=== PATIENT | female | born 1985 | race Caucasian/White ===

== ENCOUNTER 2017-06-28 18:21 | Emergency (ER) | payer OTHER ==
[~2017-06-28] VITALS: Ht 160 cm; Wt 52.8 kg
[~2017-06-28 18:21] MED LIST: ACET-1256 PO; ASPEC325 PO; MORP60TA6 PO; MTR600X PO; POLY335019 PO
[2017-06-28 18:43] VITALS: Ht 160 cm; Wt 52.8 kg
[2017-06-28] MEDS ORDERED: IBUPROFEN 800 MG TAB PO STA (19:04)
[2017-06-28] MEDS ORDERED: SODIUM CHLORIDE 0.9% 1000ML 1,000 ML IV STA ×2 (19:04→21:03)
[2017-06-28] MEDS ORDERED: ACETAMINOPHEN 500 MG TAB PO STA (19:04)
[2017-06-28] MEDS ORDERED: METH20TA66 PO (19:14)
[2017-06-28] MEDS ORDERED: MEDR150I19 IM (19:14)
[2017-06-28] MEDS ORDERED: MORP1TAB13 PO (19:14)
[2017-06-28] MEDS ORDERED: IBUP-103 PO (19:14)
[2017-06-28 19:28] LABS: URINE APPEARANCE TURBID (CLEAR); URINE BILIRUBIN NEG (NEG); URINE COLOR YELLOW; URINE EPITHELIAL CELL AUTO >30 /lpf (0-5); URINE NITRITE POS (NEG); URINE PH 7.5 (4.5-7.5); UROBILINOGEN NEG (NEG); ZZUR CULT IF INDIC CLEAN CATCH YES
[2017-06-28 19:29] LABS: MANUAL MICROSCOPIC REQUIRED? NO; REVIEW REQ? NO
[2017-06-28 19:30] LABS: SULFASALICYLIC ACID POS (NEG)
[2017-06-28 20:24] LABS: BASO % 0.1 %; BASO ABS # 0.01 K/uL (0-0.2); COMPLETE YES; EOS % 0.2 %; IG% 0.4 %; LYMPH % 10.5 %; MEAN CELL VOLUME 92.1 fL (80-100); MEAN CORPUSCULAR HGB CONC 34.7 g/dl (32-36); MEAN PLATELET VOLUME 8.9 fL (7.4-10.4); MONO % 16.8 %; PLATELET COUNT 301 K/uL (130-400); RED BLOOD COUNT 3.69 M/uL (4.2-5.4); WHITE BLOOD COUNT 13.36 K/uL (4.8-10.8)
[2017-06-28 20:40] LABS: BUN/CREATININE RATIO 21.3 (10-20); CALCIUM 8.4 mg/dl (8.5-10.1); CREATININE 0.54 mg/dl (0.60-1.20); POTASSIUM 3.3 mmol/L (3.5-5.1)
[2017-06-28 20:43] LABS: ALB/GLOB RATIO 0.7 (0.9-2)
[2017-06-28] MEDS ORDERED: CEFTRIAXONE SOD INJ 1 GM ADDVIAL IV STA (20:49)
--- NOTE | 2017-06-28 22:00 | DIAGNOSTIC IMAGING REPORT ---
RENAL ULTRASOUND HISTORY: b/l flank pain, fever, hx pyelo COMPARISON: Abdomen and pelvis CT 04/21/2015. FINDINGS: Right kidney: 11.3 cm. No hydronephrosis. Normal corticomedullary differentiation and cortical thickness. Left kidney: 10.8 cm. No hydronephrosis. Normal corticomedullary differentiation and cortical thickness. A 1.9 cm lesion within the interpolar region. This demonstrates internal echoes. Bladder: No bladder wall thickening. Complex fluid within the bladder lumen demonstrating internal echoes. Only the right ureteral jet was identified. Multiple gallstones. No gallbladder wall thickening. IMPRESSION: 1. No hydronephrosis. 2. Complex fluid within the bladder lumen with internal echoes. Recommend correlation with urinalysis. 3. A 1.9 cm complex cyst within the left kidney. This has slightly increased in size. Six-month renal ultrasound follow-up is recommended. Electronically signed by: Aly Smiley M.D. 06/28/2017 9:58 PM Dictated Date/Time: 06/28/2017 9:55 PM
[2017-06-28] MEDS ORDERED: CEFDINIR 300 MG CAP PO STA (22:41)
[2017-06-28] MEDS ORDERED: CEFD300C2 PO (22:47)
[2017-06-28] MEDS ORDERED: ONDA4TAB10 SL (22:48)
--- NOTE | 2017-06-28 22:49 | EMERGENCY ROOM VISIT NOTE ---
History First contact with patient: 18:48 Chief Complaint: ABDOMINAL PAIN Stated Complaint: SIDE PAIN IN R AND L SIDE Nursing Triage Summary: Patient reports that she has ongoing issues with her kidneys and states that today she started having pain in bilateral flank area. Patient notes being dehydrated recently and has fever however has not been taking anything for fevers. History of Present Illness The patient is a 32 year old female who presents to the Emergency Room with complaints of bilateral flank pain. The patient states that she has had pain that feels like it is in both of her kidneys. The pain first started 2 days ago. She has had associated fevers and vomiting. She has been eating very little because she is afraid she will get nauseous. She states her highest temperature was 103F. The patient has a history of kidney infections and states she has been hospitalized in the past for kidney infections. She denies any urinary symptoms, changes in bowel movements, abdominal pain, chest pain or shortness of breath. She has been taking ibuprofen at home for her symptoms and last took that early this morning. Review of Systems A complete 10 point review of systems was reviewed with the patient with pertinent positives and negatives as per history of present illness. All else were negative. Past Medical/Surgical History Medical Problems: (1) Heroin addiction (2) Kidney stones Social History Smoking Status: Current Every Day Smoker Alcohol Use: none Current/Historical Medications Scheduled Cefdinir (Omnicef), 300 MG PO Q12H Methylphenidate HCl (Methylphenidate HCl), 20 MG PO BID Morphine Sulfate (Morphine Sulfate Er), 30 MG PO BID Ondasetron Odt (Zofran Odt), 4 MG SL Q6H Scheduled PRN Ibuprofen Tab (Advil), 400 MG PO Q6H PRN for Pain Miscellaneous Medications Medroxyprogesterone Acetate (C (Medroxyprogesterone Aceta), 150 MG IM Allergies Coded Allergies: Codeine (Verified Allergy, Intermediate, SWELLING, HIVES, 02/03/14) Quinolones (Verified Allergy, Mild, 02/03/14) Ciprofloxacin (Verified Allergy, Unknown, rash, 02/03/14) Physical Exam Vital Signs Date Time Temp Pulse Resp B/P (MAP) Pulse Ox O2 Delivery O2 Flow Rate FiO2 06/28/17 22:56 37.2 94 18 100/76 97 06/28/17 22:35 37.2 06/28/17 22:26 94 18 100/76 97 06/28/17 21:00 37.7 06/28/17 20:42 105 18 106/59 97 Room Air 06/28/17 18:43 39.4 131 18 122/82 97 Room Air Physical Exam VITALS: Vitals are noted on the nurse's note and reviewed by myself. Vital signs stable. GENERAL: This is a 32-year-old female, in no acute distress, nondiaphoretic, well-developed well-nourished. HEART: Regular rate and rhythm without murmurs gallops or rubs. LUNGS: Clear to auscultation bilaterally without wheezes, rales or rhonchi. ABDOMEN: Soft, mild tenderness in the right mid abdomen. MUSCULOSKELETAL: Bilateral CVA tenderness. NEURO: Patient was alert and oriented to person place and time. Medical Decision & Procedures ER Provider Diagnostic Interpretation: RENAL ULTRASOUND HISTORY: b/l flank pain, fever, hx pyelo COMPARISON: Abdomen and pelvis CT 04/21/2015. FINDINGS: Right kidney: 11.3 cm. No hydronephrosis. Normal corticomedullary differentiation and cortical thickness. Left kidney: 10.8 cm. No hydronephrosis. Normal corticomedullary differentiation and cortical thickness. A 1.9 cm lesion within the interpolar region. This demonstrates internal echoes. Bladder: No bladder wall thickening. Complex fluid within the bladder lumen demonstrating internal echoes. Only the right ureteral jet was identified. Multiple gallstones. No gallbladder wall thickening. IMPRESSION: 1. No hydronephrosis. 2. Complex fluid within the bladder lumen with internal echoes. Recommend correlation with urinalysis. 3. A 1.9 cm complex cyst within the left kidney. This has slightly increased in size. Six-month renal ultrasound follow-up is recommended. Laboratory Results 06/28/17 20:10 Red Blood Count 3.69, Mean Corpuscular Volume 92.1, Mean Corpuscular Hemoglobin 32.0, Mean Corpuscular Hemoglobin Concent 34.7, Mean Platelet Volume 8.9, Neutrophils (%) (Auto) 72.0, Lymphocytes (%) (Auto) 10.5, Monocytes (%) (Auto) 16.8, Eosinophils (%) (Auto) 0.2, Basophils (%) (Auto) 0.1, Neutrophils # (Auto ) 9.62, Lymphocytes # (Auto) 1.40, Monocytes # (Auto) 2.24, Eosinophils # (Auto ) 0.03, Basophils # (Auto) 0.01 06/28/17 20:09 Test 06/28/17 19:15 06/28/17 19:49 06/28/17 20:09 06/28/17 20:10 Urine Color YELLOW Urine Appearance TURBID (CLEAR) Urine pH 7.5 (4.5-7.5) Urine Specific [place] 1.020 (1.000-1.030) Urine Protein 2+ (NEG) Urine Glucose (UA) NEG (NEG) Urine Ketones NEG (NEG) Urine Occult Blood 1+ (NEG) Urine Nitrite POS (NEG) Urine Bilirubin NEG (NEG) Urine Urobilinogen NEG (NEG) Urine Leukocyte Esterase LARGE (NEG) Urine WBC (Auto) >30 /hpf (0-5) Urine RBC (Auto) 5-10 /hpf (0-4) Urine Hyaline Casts (Auto) 1-5 /lpf (0-5) Urine Epithelial Cells (Auto) >30 /lpf (0-5) Urine Bacteria (Auto) 4+ (NEG) Urine Test NEG (NEG) Bedside Lactic Acid Venous 1.33 mmol/L (0.90-1.70) Anion Gap 6.0 mmol/L (3-11) Est Creatinine Clear Calc Drug Dose 124.8 ml/min Estimated GFR () 145.7 Estimated GFR (Non- 125.7 BUN/Creatinine Ratio 21.3 (10-20) Calcium Level 8.4 mg/dl (8.5-10.1) Total Bilirubin 0.3 mg/dl (0.2-1) Aspartate Amino Transf (AST/SGOT) 15 U/L (15-37) Alanine Aminotransferase (ALT/SGPT) 25 U/L (12-78) Alkaline Phosphatase 98 U/L (45-117) Total Protein 6.5 gm/dl (6.4-8.2) Albumin 2.7 gm/dl (3.4-5.0) Globulin 3.8 gm/dl (2.5-4.0) Albumin/Globulin Ratio 0.7 (0.9-2) Lipase 110 U/L (73-393) White Blood Count 13.36 K/uL (4.8-10.8) Red Blood Count 3.69 M/uL (4.2-5.4) Hemoglobin 11.8 g/dL (12.0-16.0) Hematocrit 34.0 % (37-47) Mean Corpuscular Volume 92.1 fL (80-100) Mean Corpuscular Hemoglobin 32.0 pg (25-34) Mean Corpuscular Hemoglobin Concent 34.7 g/dl (32-36) Platelet Count 301 K/uL (130-400) Mean Platelet Volume 8.9 fL (7.4-10.4) Neutrophils (%) (Auto) 72.0 % Lymphocytes (%) (Auto) 10.5 % Monocytes (%) (Auto) 16.8 % Eosinophils (%) (Auto) 0.2 % Basophils (%) (Auto) 0.1 % Neutrophils # (Auto) 9.62 K/uL (1.4-6.5) Lymphocytes # (Auto) 1.40 K/uL (1.2-3.4) Monocytes # (Auto) 2.24 K/uL (0.11-0.59) Eosinophils # (Auto) 0.03 K/uL (0-0.5) Basophils # (Auto) 0.01 K/uL (0-0.2) RDW Standard Deviation 43.6 fL (36.4-46.3) RDW Coefficient of Variation 12.9 % (11.5-14.5) Immature Granulocyte % (Auto) 0.4 % Immature Granulocyte # (Auto) 0.06 K/uL (0.00-0.02) Medications Administered Medications (Trade) Dose Ordered Sig/Srini Route Start Time Stop Time Status Last Admin Dose Admin Sodium Chloride 1,000 ml @ 999 mls/hr Q1H1M STAT IV 06/28/17 19:04 06/28/17 20:04 DC 06/28/17 19:41 999 MLS/HR Ibuprofen (Motrin Tab) 800 mg NOW STAT PO 06/28/17 19:04 06/28/17 19:07 DC 06/28/17 19:41 800 MG Acetaminophen (Tylenol Tab) 1,000 mg NOW STAT PO 06/28/17 19:04 06/28/17 19:07 DC 06/28/17 19:41 1,000 MG Ceftriaxone Sodium (Rocephin Inj) 1 gm NOW STAT IV 06/28/17 20:49 06/28/17 20:50 DC 06/28/17 21:33 1 GM Sodium Chloride 1,000 ml @ 999 mls/hr Q1H1M STAT IV 06/28/17 21:03 06/28/17 22:03 DC 06/28/17 21:33 999 MLS/HR Cefdinir (Omnicef Cap) 600 mg ONE STAT PO 06/28/17 22:41 06/28/17 22:43 DC 06/28/17 22:55 600 MG ED Course The patient was evaluated as above. Labs were drawn and IV access was obtained. Patient was medicated with 1 L normal saline solution, ibuprofen and Tylenol. Renal ultrasound was performed and read by radiology as above. The patient's urine appears to be infected. She was given 1 g Rocephin. Patient was reevaluated and states that she feels much better. Her temperature has improved. Findings were discussed with the patient. She was able to drink apple juice without difficulty. She feels she can be discharged home. She was given a home pack of Omnicef. Discharge instructions were reviewed with the patient. The patient verbalized understanding of my assessment and treatment plan and was discharged home in good condition. Medical Decision Differential diagnosis includes infected stone, pyelonephritis, gastroenteritis , appendicitis, cholecystitis, among others. The patient is a 32-year-old female who presents today complaining of bilateral flank pain. Labs revealed a leukocytosis of 13,000. No concerning anemia or left leg abnormalities. Kidney functions were within normal limits. Urinalysis was suggestive of infection, with 4+ bacteria, positive nitrites and positive leukocyte esterase. Previous urine cultures were reviewed. The patient has grown out Escherichia coli in the past which has been resistant to Bactrim. Her urine has always been sensitive to cephalosporins. She will be placed on Omnicef. Blood cultures were drawn due to the patient's complaint and initial vital signs. Lactic acid was not elevated. Heart rate and temperature improved significantly after receiving fluids and antipyretics. The patient was slightly hypotensive, but this is her baseline. She was well-appearing. I do feel she may be treated as an outpatient. She is tolerating oral fluids well. The patient's case was reviewed with Dr. Blood, ED attending physician, who agreed with my assessment and treatment plan. Based on the patient's presentation and work up, I feel the patient is stable for outpatient treatment. The patient was educated to return to the emergency department for any worsening of their current condition or new/concerning symptoms. She will follow up with her PCP. Medication reconciliation: I attest that I have personally reviewed the patient 's current medication list. Blood pressure screening: Patient was found to have normal blood pressure on screening and does not require follow-up. Impression Primary Impression: Pyelonephritis Departure Information Dispostion Home / Self-Care Condition GOOD Prescriptions Ondasetron Odt (ZOFRAN ODT) 4 Mg Tab 4 MG SL Q6H for Nausea, #15 TAB Prov: Kari Chavez PA-C 06/28/17 Cefdinir (OMNICEF) 300 Mg Cap 300 MG PO Q12H for 9 Days, #18 CAP Prov: Kari Chavez PA-C 06/28/17 Referrals Andrae Wallace M.D. (PCP) Patient Instructions My [facility] Additional Instructions You have been treated in the Emergency Department for a Urinary Tract Infection (UTI). You have been prescribed Omnicef to be taken twice daily for a total of 10 days. This is an antibiotic. All antibiotics have the potential to cause diarrhea. Stop this medication and contact a medical provider if you were to develop any significant adverse side effects including: wheezing, shortness of breath, passing out, vomiting, or a diffuse rash. Always take antibiotics as directed and COMPLETE the ENTIRE course regardless of the improvement of your symptoms. For pain control, you can use the following [id number] medicines (if >12 yo): - Regular strength (325mg/tab) Tylenol (acetaminophen) 2 tabs every 4-6 hours as needed. Do not exceed 12 tablets in a 24 hour period. Avoid taking more than 4 grams (4000 mg) of Tylenol per day. This includes any other sources of acetaminophen you may take on a regular basis. - Regular strength (200 mg/tab) Advil (ibuprofen) 1-2 tabs every 4-6 hours as needed. Do not exceed a dose of 3200 mg per day. Drink plenty of water and stay well hydrated. As with any trip to the Emergency Department, you should follow-up with your Primary Care Provider from today's visit. Return to the emergency department if your symptoms persist despite treatment plan outlined above or if the following symptoms occur: increased fevers, chills , worsening back pain, worsening vomiting, or blood in your urine.
[2017-06-28 22:56] VITALS: BP 100/76; PULSE 94; TEMP 37.2; O2SAT 97
== END 2017-06-28 22:57 | disposition home or self-care (01) ==
LOC: C.EDB 18:21
DX: N12 Tubulo-interstitial nephritis, not specified as acute or chronic (principal); D72.829 Elevated white blood cell count, unspecified; F17.200 Nicotine dependence, unspecified, uncomplicated; Z87.442 Personal history of urinary calculi; Z79.899 Other long term (current) drug therapy; Z88.2 Allergy status to sulfonamides; Z88.5 Allergy status to narcotic agent; Z88.8 Allergy status to other drugs, medicaments and biological substances

== ENCOUNTER → 2017-09-01 | Outpatient (CLI) | payer OTHER ==
[~2017-09-01] MED LIST changes: -ACET-1256 PO; -ASPEC325 PO; +IBUP-103 PO; +MEDR150I19 IM; +METH20TA66 PO; +MORP1TAB13 PO; -MORP60TA6 PO; -MTR600X PO; +ONDA4TAB10 SL; -POLY335019 PO
--- NOTE | 2017-09-24 10:49 | CODING QUERY MEDICAL NECESSITY ---
SUPPORTING DIAGNOSIS NEEDED A supporting diagnosis is required for the test/procedure performed on this patient in order for us to be reimbursed by the patient's insurance. Please provide a supporting diagnosis for the following test/procedure listed below next to the test name along with your signature. *If there is no additional diagnosis for this patient that would support the following test/procedure please document that below next to the test/procedure. Test(s)/Procedure(s) that require a supporting diagnosis: * GRP B STREP CULTURE DIAGNOSIS: Provider Signature: Date: Thank you Jocelyn Lennon Trooval Information Management Once completed, please kindly fax back to [phone] For questions please call [phone]
== END | disposition home or self-care (01) ==
LOC: C.LABSPEC 10:31
PROVIDERS: ATTEND Family Medicine
DX: Z01.89 Encounter for other specified special examinations (principal)

== ENCOUNTER → 2017-09-23 | Outpatient (CLI) | payer OTHER ==
[~2017-09-23] MED LIST changes: +OPTIRAY 320 IV PRN
--- NOTE | 2017-09-23 15:13 | DIAGNOSTIC IMAGING REPORT ---
CT SCAN OF THE ABDOMEN AND PELVIS COMBO RENAL MASS PROTOCOL CLINICAL HISTORY: Renal cyst. COMPARISON STUDY: Abdominal CT scans dated 11/03/2008 and 04/21/2015. Abdominal ultrasound dated 06/28/2017. TECHNIQUE: Before and following the IV administration of 92 cc of Optiray 320, CT scan of the abdomen and pelvis is performed from the lung bases to the proximal femora. Images are reviewed in the axial, sagittal, and coronal planes. IV contrast was administered without complication. A dose lowering technique was utilized adhering to the principles of ALARA. CT DOSE: 575.64 mGycm FINDINGS: Lung bases: The heart is normal in size and without pericardial effusion. The lung bases are clear. Liver: The contrast-enhanced liver is normal in size, contour, and attenuation. There is no intrahepatic biliary ductal dilatation. The hepatic veins and portal veins are patent. Gallbladder: There are numerous calcified gallstones, without convincing CT evidence of acute cholecystitis. Spleen: Normal in size and attenuation. Pancreas: Unremarkable. Adrenal glands: Unremarkable. Kidneys: No renal calculi are identified on the unenhanced series. The contrast enhanced kidneys are normal in size and without hydronephrosis. Small foci of cortical scarring are noted in both kidneys. The kidneys enhance and excrete symmetrically. No enhancing cortical mass is identified. A 1.7 cm exophytic cyst arises from the interpolar left kidney. There is no evidence of urothelial lesion within the renal pelvis bilaterally or involving the proximal ureters. Abdominal vasculature: The abdominal aorta is normal in course and caliber. Bowel: Moderate to severe constipation is observed. No bowel obstruction is seen. The appendix is well-visualized and normal. Peritoneum: There is no intraperitoneal free air or abdominal ascites. There is a small fat-containing umbilical hernia. Lymphadenopathy: None. Pelvic viscera: The bladder, uterus, and adnexa are normal as visualized. There are bilateral ovarian follicles. Skeletal structures: No lytic or blastic lesions are seen. IMPRESSION: 1. There is a 1.7 cm simple cyst arising from the interpolar left kidney. This has been present dating back to 2007, and has modestly increased in size from the 2014 examination when it measured 1.3 cm. 2. No enhancing renal cortical mass is seen. 3. No acute infectious or inflammatory findings are identified. 4. Moderate to severe constipation. No bowel obstruction is seen. 5. Cholelithiasis. Electronically signed by: Tucker Pierce M.D. 09/23/2017 3:12 PM Dictated Date/Time: 09/23/2017 3:01 PM
== END | disposition home or self-care (01) ==
LOC: C.CTS 13:32
PROVIDERS: ATTEND Urology
DX: N28.1 Cyst of kidney, acquired (principal); K59.00 Constipation, unspecified; K80.20 Calculus of gallbladder without cholecystitis without obstruction

== ENCOUNTER 2018-01-07 14:31 | Emergency (ER) | payer OTHER ==
[~2018-01-07] VITALS: Ht 160 cm; Wt 49.8 kg
[~2018-01-07 14:31] MED LIST changes: -ONDA4TAB10 SL; -OPTIRAY 320 IV PRN
[2018-01-07 14:33] VITALS: TEMP 36.7; Ht 160 cm; Wt 49.8 kg
--- NOTE | 2018-01-07 15:24 | EMERGENCY ROOM VISIT NOTE ---
History Report prepared by Roxi: Henrry Palacios Under the Supervision of: Dr. Valente Pringle M.D. First contact with patient: 14:56 Chief Complaint: DETOX REQUEST Stated Complaint: USING, NEED DETOX History of Present Illness The patient is a 32 year old female who presents to the Emergency Room with a request for a detox from meth. The patient states that she did meth last night, and she states that she is currently interested in going to rehab. She states that she has not done drugs in the past month other than last night. The patient states that she started with taking pills, then bath salts, then heroin , and then she has used meth for a long time. She notes that she has been in rehab twice before. The patient notes that she vomited today. She denies any fever, chills, cough, and congestion. She denies any other medical problems, though she does take Suboxone. The patient notes that she has seen a counsellor for anxiety and depression, though she is not on any medications. She states that today she has been having thoughts like "what is the point" but denies any thoughts of wanting to hurt herself or others. She has tried to hurt herself a long time ago, though she has not done anything like that in a long time. The patient additionally notes a prior overdose from heroin in the past. Source of History: patient Onset: today Position: other (global) Quality: other (detox request) Associated Symptoms: + vomiting, No fevers, No chills, No cough Review of Systems See HPI for pertinent positives and negatives. A total of ten systems were reviewed and were otherwise negative. Past Medical & Surgical Medical Problems: (1) Heroin addiction (2) Kidney stones Social History Smoking Status: Current Every Day Smoker Alcohol Use: none Drug Use: other (meth) Marital Status: single Occupation Status: unemployed Current/Historical Medications Scheduled Buprenorphine Hcl-Naloxone Hcl (Suboxone 8-2 Mg), 1 DOSE UT DAILY Medroxyprogesterone Acetate (Medroxyprogesterone Aceta), 150 MG IM Q3MO Meloxicam (Meloxicam), 15 MG PO DAILY Ranitidine HCl (Ranitidine HCl), 150 MG PO DAILY Allergies Coded Allergies: Codeine (Verified Allergy, Intermediate, SWELLING, HIVES, 02/03/14) Quinolones (Verified Allergy, Mild, 02/03/14) Ciprofloxacin (Verified Allergy, Unknown, rash, 02/03/14) Physical Exam Vital Signs Date Time Temp Pulse Resp B/P (MAP) Pulse Ox O2 Delivery O2 Flow Rate FiO2 01/07/18 17:00 68 20 120/82 98 Room Air 01/07/18 14:33 36.7 81 18 140/108 96 Room Air Physical Exam GENERAL: Depressed affect. Intermittently tearful. No acute distress. HENT: Normocephalic, atraumatic. Oropharynx unremarkable. EYES: Normal conjunctiva. Sclera non-icteric. NECK: Supple. No nuchal rigidity. FROM. No JVD. RESPIRATORY: Clear to auscultation. CARDIAC: Regular rate, normal rhythm. Extremities warm and well perfused. Pulses equal. ABDOMEN: Soft, non-distended. No tenderness to palpation. No rebound or guarding. No masses. RECTAL: Deferred. MUSCULOSKELETAL: Chest examination reveals no tenderness. The back is symmetrical on inspection without obvious abnormality. There is no CVA tenderness to palpation. No joint edema. LOWER EXTREMITIES: Calves are equal size bilaterally and non-tender. No edema. No discoloration. NEURO: Normal sensorium. No sensory or motor deficits noted. SKIN: No rash or jaundice noted. Medical Decision & Procedures ED Course 1456: The patient was evaluated in room A6. A complete history and physical exam was performed. 1706: The patient got a spot at the [facility] in [place], and they will pick her up from her home at 1830. She will be discharged so she can be picked up later. Medical Decision I reviewed the patient's past medical history, medications, and the nursing notes as described above. Differential diagnosis: Etiologies such as mood disorder, infection, hypoglycemia, electrolyte abnormalities, cardiac sources, intracerebral event, toxicologic, neurologic, as well as others were entertained. The patient is a 32-year-old woman who presents emergency department requesting assistance to enter a detox program after having a relapse of her history of drug abuse using meth last night per hpi. On arrival the patient is with a depressed affect and intermittently tearful but otherwise in no acute distress, afebrile stable vital signs. The patient denies any medical complaints. She reports some ongoing depression but denies any thoughts of wanting to hurt herself or others. Rather she is interested in seeking help for her addiction. Father is at the bedside. Given no medical complaints no indication for lab testing. Given no concerns for the patient's safety or that of others no need for further psychiatric evaluation. Case management assisting and was able to obtain placement for the patient at detox facility at [facility] in [place]. Will pick the patient up at her house this evening. Findings and plan reviewed with patient. Patient agreeable and d/c'd per discharge instructions. Medication Reconcilliation Current Medication List: was personally reviewed by me Blood Pressure Screening Patient's blood pressure: Elevated blood pressure Blood pressure disposition: Elevated BP felt to be situational Impression Primary Impression: Drug abuse and dependence Additional Impression: Desire for detoxification Scribe Attestation The scribe's documentation has been prepared under my direction and personally reviewed by me in its entirety. I confirm that the note above accurately reflects all work, treatment, procedures, and medical decision making performed by me. Departure Information Dispostion Home / Self-Care Referrals Andrae Wallace M.D. (PCP) Forms HOME CARE DOCUMENTATION FORM, IMPORTANT VISIT INFORMATION, WORK / SCHOOL INSTRUCTIONS Patient Instructions Addiction Drug Abuse Tx, ED Drug Abuse General, My [facility] Additional Instructions Please follow up your plan for detox. You were accepted for admission to [facility] in [place] and they will pick you up at your home tonight at 6:30 pm. Problem Qualifiers
[2018-01-07] MEDS ORDERED: RANI150T2 PO (15:33)
[2018-01-07] MEDS ORDERED: BUPR8MIS UT (15:33)
[2018-01-07] MEDS ORDERED: MELO-83 PO (15:33)
[2018-01-07] MEDS ORDERED: DPPI150 IM (15:33)
[2018-01-07 17:00] VITALS: BP 120/82; PULSE 68; O2SAT 98
== END 2018-01-07 17:27 | disposition home or self-care (01) ==
LOC: C.EDB 14:32 → C.EDA 17:27
DX: F15.10 Other stimulant abuse, uncomplicated (principal); Z79.899 Other long term (current) drug therapy; Z88.1 Allergy status to other antibiotic agents; Z88.5 Allergy status to narcotic agent; Z88.8 Allergy status to other drugs, medicaments and biological substances; F17.200 Nicotine dependence, unspecified, uncomplicated

== ENCOUNTER → 2018-03-30 | Outpatient (CLI) | payer OTHER ==
[~2018-03-30] MED LIST changes: +BUPR8MIS UT; +DPPI150 IM; -IBUP-103 PO; -MEDR150I19 IM; +MELO-83 PO; -METH20TA66 PO; -MORP1TAB13 PO; +RANI150T2 PO
--- NOTE | 2018-03-30 10:54 | DIAGNOSTIC IMAGING REPORT ---
ABDOMEN LIMITED (US) CLINICAL HISTORY: Umbilical pain and swelling. COMPARISON STUDY: Abdomen and pelvis CT 09/23/2017. FINDINGS: Real-time sonographic imaging of the periumbilical location was obtained performed with customer engagement representative images submitted. No fluid collections or masses at the umbilicus. Trace edema and skin thickening at this location with increase echogenicity within the fat. This favors a cellulitis. No abscess identified. Tiny umbilical fat-containing hernia. IMPRESSION: Above findings suggestive of a cellulitis at the umbilicus. No abscess identified. There is a tiny fat-containing umbilical hernia. Therefore, this also could also represent strangulation of the herniated fat . Electronically signed by: Aly Smiley M.D. 03/30/2018 10:53 AM Dictated Date/Time: 03/30/2018 10:50 AM
== END | disposition home or self-care (01) ==
LOC: C.ULTR 10:00
PROVIDERS: ATTEND Family Medicine
DX: Q64.4 Malformation of urachus (principal); K42.9 Umbilical hernia without obstruction or gangrene